=== PATIENT | male | born 1980 | race American Indian/Alaskan Native ===

== ENCOUNTER 2019-01-27 07:35 | Emergency (ER) | payer MEDICAID ==
[2019-01-27] MEDS ORDERED: LORazepam 2 MG/ML VIAL IM ONE (07:50)
[2019-01-27] MEDS ORDERED: ZIPRASIDONE MESYLATE 20 MG VIAL IM ONE (07:50)
[2019-01-27] MEDS ORDERED: WATER FOR INJ Sterile (PF) 10 ML ONE (07:55)
--- NOTE | 2019-01-27 08:42 | Emergency Department Report ---
ED Psych HPI - General Chief Complaint: Psych Stated Complaint: GERRY DE LA ROSA Time Seen by Provider: 01/27/19 07:50 Source: police Mode of arrival: Stretcher - History of Present Illness Initial Comments: This is a 38-year-old man who arrives at this facility with hyperverbal speech. He was a bit agitated. He was given Geodon and Ativan shortly after arrival. On my encounter the patient has a severe flight of ideas. He doesn't appear to be oriented and can identify that he is in [place]. He cannot tell me where he was born. He seems to be employing that he has a mental health history. However he cannot identify any chronic medications. His associations are so loose that obtaining a history is very sketchy at best. I do not find him in the current [employer] database. He is cooperating with examination. Complaint: other (does admit to hallucinations) -: unknown Associated Psychiatric Symptoms: racing thoughts, auditory hallucinations History of same: Yes (most likely but unknown) Quality: constant Improves With: none Worsens With: none Context: not taking psychiatric (probably ), other (unknown) Associated Symptoms: denies other symptoms - Related Data Allergies Allergy/AdvReac Type Severity Reaction Status Date / Time Unable to Assess Allergy Unverified 01/27/19 07:41 ED Review of Systems ROS: Stated complaint: GERRY DE LA ROSA Other details as noted in HPI Comment: All other systems reviewed and negative ED Past Medical Hx - Past Medical History Additional medical history: DONNELL - Surgical History Additional Surgical History: DONNELL - Social History Smoking Status: Unknown if ever smoked Substance Use Type: Other (unknown) ED Physical Exam - General Limitations: Altered Mental Status (consistent with psychosis) General appearance: alert, in no apparent distress - Head Head exam: Present: atraumatic, normocephalic - Eye Eye exam: Present: normal appearance, PERRL, EOMI. Absent: scleral icterus - ENT ENT exam: Present: mucous membranes moist - Neck Neck exam: Present: normal inspection. Absent: tenderness, meningismus - Respiratory Respiratory exam: Present: normal lung sounds bilaterally. Absent: respiratory distress - Cardiovascular Cardiovascular Exam: Present: regular rate, normal rhythm. Absent: systolic m urmur, diastolic murmur, rubs, gallop - GI/Abdominal GI/Abdominal exam: Present: soft, normal bowel sounds. Absent: distended, tenderness, guarding, rebound - Rectal Rectal exam: Present: deferred - Extremities Exam Extremities exam: Present: normal inspection - Back Exam Back exam: Present: normal inspection - Neurological Exam Neurological exam: Present: alert, oriented X3, CN II-XII intact. Absent: motor sensory deficit - Psychiatric Psychiatric exam: Present: agitated, flat affect, other (loose associations pressured speech) - Skin Skin exam: Present: warm, dry, intact, normal color. Absent: rash ED Course Vital Signs 01/27/19 08:01 Temperature 98.2 F Pulse Rate 95 H Respiratory 18 Rate Blood Pressure 145/110 [Left] O2 Sat by Pulse 97 Oximetry ED Medical Decision Making - Lab Data Result diagrams: 01/27/19 08:25 01/27/19 08:25 Laboratory Results - last 24 hr 01/27/19 01/27/19 01/27/19 08:21 08:21 08:25 WBC RBC Hgb Hct MCV MCH MCHC RDW Plt Count Lymph % (Auto) Gila % (Auto) Eos % (Auto) Baso % (Auto) Lymph # Gila # Eos # Baso # Seg Neutrophils % Seg Neutrophils # Sodium Potassium Chloride Carbon Dioxide Anion Gap BUN Creatinine Estimated GFR BUN/Creatinine Ratio Glucose Calcium Total Bilirubin Direct Bilirubin Indirect Bilirubin AST ALT Alkaline Phosphatase Total Creatine Kinase CK-MB (CK-2) CK-MB (CK-2) Rel Index Total Protein Albumin Albumin/Globulin Ratio Urine Color Yellow Urine Turbidity Clear Urine pH 6.0 Ur Specific [place] 1.024 Urine Protein <15 mg/dl Urine Glucose (UA) Neg Urine Ketones Neg Urine Blood Neg Urine Nitrite Neg Urine Bilirubin Neg Urine Urobilinogen 2.0 Ur Leukocyte Esterase Neg Urine WBC (Auto) < 1.0 Urine RBC (Auto) 2.0 U Epithel Cells (Auto) < 1.0 Urine Mucus Few Salicylates < 0.3 L Urine Opiates Screen Presumptive negative Urine Methadone Screen Presumptive negative Acetaminophen Ur Barbiturates Screen Presumptive negative Ur Phencyclidine Scrn Presumptive negative Ur Amphetamines Screen Presumptive negative U Benzodiazepines Scrn Presumptive negative Urine Cocaine Screen Presumptive negative U Marijuana (THC) Screen Presumptive negative Drugs of Abuse Note Disclamer Plasma/Serum Alcohol 01/27/19 01/27/19 01/27/19 08:25 08:25 08:25 WBC RBC Hgb Hct MCV MCH MCHC RDW Plt Count Lymph % (Auto) Gila % (Auto) Eos % (Auto) Baso % (Auto) Lymph # Gila # Eos # Baso # Seg Neutrophils % Seg Neutrophils # Sodium 142 Potassium 4.4 Chloride 104.3 Carbon Dioxide 23 Anion Gap 19 BUN 11 Creatinine 0.6 L Estimated GFR > 60 BUN/Creatinine Ratio 18 Glucose 98 Calcium 9.3 Total Bilirubin Direct Bilirubin Indirect Bilirubin AST ALT Alkaline Phosphatase Total Creatine Kinase CK-MB (CK-2) CK-MB (CK-2) Rel Index Total Protein Albumin Albumin/Globulin Ratio Urine Color Urine Turbidity Urine pH Ur Specific [place] Urine Protein Urine Glucose (UA) Urine Ketones Urine Blood Urine Nitrite Urine Bilirubin Urine Urobilinogen Ur Leukocyte Esterase Urine WBC (Auto) Urine RBC (Auto) U Epithel Cells (Auto) Urine Mucus Salicylates Urine Opiates Screen Urine Methadone Screen Acetaminophen < 5.0 L Ur Barbiturates Screen Ur Phencyclidine Scrn Ur Amphetamines Screen U Benzodiazepines Scrn Urine Cocaine Screen U Marijuana (THC) Screen Drugs of Abuse Note Plasma/Serum Alcohol < 0.01 01/27/19 01/27/19 08:25 08:25 WBC 6.3 RBC 4.88 Hgb 14.7 Hct 43.9 MCV 90 MCH 30 MCHC 34 RDW 13.0 L Plt Count 260 Lymph % (Auto) 24.5 Gila % (Auto) 8.7 H Eos % (Auto) 1.0 Baso % (Auto) 0.5 Lymph # 1.5 Gila # 0.5 Eos # 0.1 Baso # 0.0 Seg Neutrophils % 65.3 Seg Neutrophils # 4.1 Sodium Potassium Chloride Carbon Dioxide Anion Gap BUN Creatinine Estimated GFR BUN/Creatinine Ratio Glucose Calcium Total Bilirubin 0.20 Direct Bilirubin < 0.2 Indirect Bilirubin 0.0 AST 16 ALT 12 Alkaline Phosphatase 58 Total Creatine Kinase 345 H CK-MB (CK-2) 2.3 CK-MB (CK-2) Rel Index 0.6 Total Protein 8.0 Albumin 4.4 Albumin/Globulin Ratio 1.2 Urine Color Urine Turbidity Urine pH Ur Specific [place] Urine Protein Urine Glucose (UA) Urine Ketones Urine Blood Urine Nitrite Urine Bilirubin Urine Urobilinogen Ur Leukocyte Esterase Urine WBC (Auto) Urine RBC (Auto) U Epithel Cells (Auto) Urine Mucus Salicylates Urine Opiates Screen Urine Methadone Screen Acetaminophen Ur Barbiturates Screen Ur Phencyclidine Scrn Ur Amphetamines Screen U Benzodiazepines Scrn Urine Cocaine Screen U Marijuana (THC) Screen Drugs of Abuse Note Plasma/Serum Alcohol - Radiology Data Radiology results: report reviewed (CT of the head no acute process) Critical care attestation.: If time is entered above; I have spent that time in minutes in the direct care of this critically ill patient, excluding procedure time. ED Disposition Clinical Impression: Acute psychosis Disposition: [id number]/TX-65 PSY HOSP/PSY UNIT Is pt being admited?: No Does the pt Need Aspirin: No Condition: Stable Time of Disposition: 11:53
[2019-01-27 08:49] LABS: Bilirubin,Urine NEG (Negative); Blood,Urine NEG (Negative); Color,Urine Yellow (Yellow); Mucus,Urine FEW /HPF; Protein,Urine <15 mg/dL mg/dL (Negative); WBC,Urine < 1.0 /HPF (0.0-6.0)
[2019-01-27 08:58] LABS: Amphetamine Screen,Urine PRESUMPTIVE NEGATIVE; Benzodiazepines Screen,Urine PRESUMPTIVE NEGATIVE; Cannabinoid Screen,Urine PRESUMPTIVE NEGATIVE; Cocaine Screen,Urine PRESUMPTIVE NEGATIVE; Methadone Screen,Urine PRESUMPTIVE NEGATIVE; Opiate Screen,Urine PRESUMPTIVE NEGATIVE
[2019-01-27 09:04] LABS: Basophils % (Auto) 0.5 % (0.0-1.8); Eosinophils # (Auto) 0.1 K/mm3 (0.0-0.4); Hematocrit 43.9 % (35.5-45.6); Hemoglobin 14.7 gm/dl (11.8-15.2); Lymphocytes # (Auto) 1.5 K/mm3 (1.2-5.4); Lymphocytes % (Auto) 24.5 % (13.4-35.0); Mean Corpuscular HGB Conc 34 % (32-34); Mean Corpuscular Volume 90 fl (84-94); Monocytes # (Auto) 0.5 K/mm3 (0.0-0.8); Monocytes % (Auto) 8.7 % (0.0-7.3); Platelet Count 260 K/mm3 (140-440); Red Blood Count 4.88 M/mm3 (3.65-5.03)
--- NOTE | 2019-01-27 09:11 | Cat Scan Report ---
CT HEAD WITHOUT CONTRAST INDICATION / CLINICAL INFORMATION: altered mental status/psychosis. TECHNIQUE: Axial imaging performed from the skull apex through the skull base without the use of cont rast. Sagittal and coronal reformatted images. All CT scans at this location are performed using CT dose reduction for ALARA by means of automated exposure control. COMPARISON: None available. FINDINGS: CEREBRAL PARENCHYMA: No significant abnormality. No acute territorial infarct. HEMORRHAGE: None. EXTRA-AXIAL SPACES: Normal in size and morphology for the patient's age. VENTRICULAR SYSTEM: Normal in size and morphology for the patient's age. MIDLINE SHIFT OR HERNIATION: None. CEREBELLUM / BRAINSTEM: No significant abnormality. CALVARIUM: No significant abnormality. ORBITS: Normal as visualized. PARANASAL SINUSES / MASTOID AIR CELLS: Normal as visualized. SOFT TISSUES of HEAD: No significant abnormality. ADDITIONAL FINDINGS: None. IMPRESSION: Cranial CT scan within normal limits. Signer Name: Jean Claude Walker Jr, MD Signed: 01/27/2019 9:07 AM Workstation Name: [id number]
[2019-01-27 09:18] LABS: Creatine Kinase MB 2.3 ng/mL (0.0-4.0)
[2019-01-27 09:19] LABS: BUN/Creatinine Ratio 18; Blood Urea Nitrogen 11 mg/dL (9-20); Calcium 9.3 mg/dL (8.4-10.2); Hemolysis Index 6
[2019-01-27 09:23] LABS: Alanine Aminotransferase 12 units/L (7-56); Albumin 4.4 g/dL (3.9-5)
[2019-01-27 09:25] LABS: Bilirubin,Direct < 0.2 mg/dL (0-0.2)
[2019-01-27] MEDS ORDERED: ZIPRASIDONE 20 MG CAP PO SCH (10:00)
[2019-01-27] MEDS ORDERED: ALUM-MAG HYDROXIDE-SIMETHICONE 200-200-20MG/5ML ORAL LIQD 30 ML PO PRN (12:04)
[2019-01-27] MEDS ORDERED: ACETAMINOPHEN 325 MG TAB PO PRN (12:04)
[2019-01-27] MEDS ORDERED: MAGNESIUM HYDROXIDE (MOM) ORAL LIQD UDC PO PRN (12:04)
[2019-01-27 16:45] VITALS: BP 112/70
== END 2019-01-27 18:12 ==
LOC: ED 07:35
DX: F23 Brief psychotic disorder (principal); B55.1 Cutaneous leishmaniasis; Z98.890 Other specified postprocedural states
CPT/HCPCS: 36415; 70450; 80048; 80076; 80307; 81001; 82550; 82553; 85025; 96372; 99285; J2060; J3486; 80320; G0480